=== PATIENT | male | born 1935 ===

== ENCOUNTER 2024-03-27 06:24 | Day surgery (SDC) | payer OTHER ==
[2024-03-27] MEDS ORDERED: DIPHENHYDRAMINE HCL 50 MG/ML VIAL 1ML IV ONE (11:00)
[2024-03-27] MEDS ORDERED: MIDAZOLAM HCL 2 MG/2 ML VIAL IV ONE (11:00)
[2024-03-27] MEDS ORDERED: fentaNYL CITRATE 50 MCG/ML AMPUL IV ONE (11:00)
== END 2024-03-27 11:05 | disposition home or self-care (01) ==
LOC: AMB-ENDOS 06:24 → CIR.AMB 13:00
PROVIDERS: ATTEND Surgery
DX: K63.5 Polyp of colon (principal); D12.3 Benign neoplasm of transverse colon

== ENCOUNTER 2024-05-08 11:23 | Inpatient (IN) | payer OTHER ==
[~2024-05-08] VITALS: Ht 172.7 cm; Wt 74.8 kg
[2024-05-08] MEDS ORDERED: LEVEMIR100 UNIT/1 (13:24)
[2024-05-08] MEDS ORDERED: GLIPIZIDE10 MG PO (13:24)
[2024-05-08] MEDS ORDERED: VASOTEC20 MG PO (13:24)
[2024-05-08] MEDS ORDERED: JANUMET XR 50-1 EAC1 PO (13:24)
[2024-05-08] MEDS ORDERED: CILOSTAZOL50 MG PO (13:25)
[2024-05-08] MEDS ORDERED: HORIZANT300 MG PO (13:25)
[2024-05-08] MEDS ORDERED: CHILDREN'S ASPI81 MG PO (13:26)
[2024-05-08] MEDS ORDERED: PRAVASTATIN SOD20 MG PO (13:26)
[2024-05-16] MEDS ORDERED: METRONIDAZOLE/SODIUM CHLORIDE 500 MG/100 ML PIGGYBACK IV ONE (12:22)
[2024-05-16] MEDS ORDERED: CEFTRIAXONE SODIUM 2,000 MG VIAL ONE (12:22)
[2024-05-16] MEDS ORDERED: CHLORHEXIDINE GLUCONATE 120 ML BOTTLE TOP ONE (13:06)
[2024-05-16] MEDS ORDERED: RINGERS SOLUTION,LACTATED 1,000 ML IV SCH (15:15)
[2024-05-16] MEDS ORDERED: MORPHINE SULFATE 4 MG/ML CARTRIDGE IV PRN (15:15)
[2024-05-16] MEDS ORDERED: OxyCODONE HCL 5 MG TABLET (ROXICODONE) PO PRN (15:15)
[2024-05-16] MEDS ORDERED: ONDANSETRON HCL 2 MG/ML VIAL IV PRN (15:15)
[2024-05-16] MEDS ORDERED: SUGAMMADEX SODIUM 200 MG/2 ML VIAL IV ONE (15:30)
[2024-05-16] MEDS ORDERED: ENALAPRILAT DIHYDRATE 1.25 MG/ML VIAL IV ONE (15:40)
[2024-05-16] MEDS ORDERED: METHYLPREDNISOLONE SOD SUCC 40 MG VIAL IV ONE (16:00)
[2024-05-16] MEDS ORDERED: NOREPINEPHRINE BITARTRATE 1 MG/ML AMPUL IV ONE (16:45)
[2024-05-16] MEDS ORDERED: TAMSULOSIN HCL 0.4 MG CAP PO SCH (17:00)
[2024-05-16] MEDS ORDERED: CIPROFLOXACIN IN 5 % DEXTROSE 400 MG/200 ML PIGGYBAG IV SCH (17:00)
[2024-05-16] MEDS ORDERED: METRONIDAZOLE/SODIUM CHLORIDE 500 MG/100 ML PIGGYBACK IV SCH (17:00)
[2024-05-16] MEDS ORDERED: HYOSCYAMINE SULFATE 0.125 MG TAB.SUBL SL SCH (17:00)
[2024-05-16] MEDS ORDERED: LACTOBACILLUS ACIDOPHILUS 1 CAP CAP PO SCH (17:00)
[2024-05-16] MEDS ORDERED: GABAPENTIN 300 MG CAPSULE PO SCH (17:00)
[2024-05-16 17:37] LABS: BASE EXCESS -8.5 mmol/l; BICARBONATE 21.2 mmol/l (23-25); SaO2 38.8 %; Tco2 23.1 mmol/l
[2024-05-16] MEDS ORDERED: ACETAMINOPHEN 500 MG GEL..CAP PO SCH (18:00)
[2024-05-16 19:57] LABS: ABG PH 7.154 (7.35-7.45); ABG PO2 30.7 mmHg (80-100); ABG pCO2 61.6 mmHg (35-45); o2 100 %
[2024-05-16 19:58] LABS: puncture site FEMORAL R
[2024-05-16] MEDS ORDERED: FAMOTIDINE/PF 20 MG/2 ML VIAL IV PUSH SCH (21:00)
[2024-05-17] MEDS ORDERED: ENOXAPARIN SODIUM 40 MG/0.4 ML SYRINGE SUBCUTANEO SCH (17:00)
[2024-05-18] MEDS ORDERED: ENOXAPARIN SODIUM 40 MG/0.4 ML SYRINGE SUBCUTANEO SCH (09:00)
== END 2024-05-16 20:54 | disposition expired | DRG 329 ==
LOC: SURG 05-16 07:00 → O/R 05-16 07:07 → SURG 05-16 12:30 → O/R 05-16 20:54
PROVIDERS: Internal Medicine; ADMIT Surgery; ATTEND Surgery
PROC: 0DQN4ZZ Repair Sigmoid Colon, Percutaneous Endoscopic Approach (ICD-10-PCS; 2024-05-16)
PROC: 0DNW4ZZ Release Peritoneum, Percutaneous Endoscopic Approach (ICD-10-PCS; 2024-05-16)
PROC: 07BB4ZZ Excision of Mesenteric Lymphatic, Percutaneous Endoscopic Approach (ICD-10-PCS; 2024-05-16)
PROC: 4A033R1 Measurement of Arterial Saturation, Peripheral, Percutaneous Approach (ICD-10-PCS; 2024-05-16)
PROC: 5A12012 Performance of Cardiac Output, Single, Manual (ICD-10-PCS; 2024-05-16)
PROC: 0BH17EZ Insertion of Endotracheal Airway into Trachea, Via Natural or Artificial Opening (ICD-10-PCS; 2024-05-16)
PROC: 5A1935Z Respiratory Ventilation, Less than 24 Consecutive Hours (ICD-10-PCS; 2024-05-16)
PROC: 0DTF4ZZ Resection of Right Large Intestine, Percutaneous Endoscopic Approach (ICD-10-PCS; principal; 2024-05-16 07:00)
DX: D12.2 Benign neoplasm of ascending colon (principal); J69.0 Pneumonitis due to inhalation of food and vomit; J95.821 Acute postprocedural respiratory failure; K91.71 Accidental puncture and laceration of a digestive system organ or structure during a digestive system procedure; K63.5 Polyp of colon; Z20.822 Contact with and (suspected) exposure to COVID-19; E78.00 Pure hypercholesterolemia, unspecified; I10 Essential (primary) hypertension; I95.81 Postprocedural hypotension